=== PATIENT | female | born 1935 | race Caucasian/White ===

== ENCOUNTER → 2016-09-09 | Outpatient (CLI) | payer MEDICARE, BC, MEDICAID ==
[~2016-09-09] MED LIST: "\\\"PREP SPRAY\\\"-TIN4 OZ"; ABACAVIR300 MG; AMOXICILLIN500 M1 PO; ASPIR 8181 MG PO; BENADRYL50 MG; COLACE100 MG PO; DEMADEX20 MG; DURICEF (NON-500 MG; FEOSOL325 MG PO; FISH OIL1000 MG PO; FLONASE 50 MCG/16 GM; FUROSEMIDE80 MG PO; GLIPIZIDE XL10 MG PO; GLUCOPHAGE1000 MG PO; K-TAB 10MEQ10 MEQ; LANTUS100 UNIT/1 SUB-Q; LEVOTHYROXINE112 MCG PO; LEXAPRO20 MG PO; LIPITOR20 M1 PO; LOPERAMIDE2 MG PO; LOPRESSOR25 MG PO; LYRICA50 MG PO; MIRAPEX0.5 MG PO; MULTAQ400 MG PO; MYCOSTATIN(NYST15 GM; NIACIN PO; NITROGLYCERIN0.2 MG TOP; NITROSTAT0.4 MG SL; NORCO 5-325 MG1 TAB PO; NOVOLOG100 UNIT/M SUB-Q; OCUVITE SOFTGE1 EACH PO; OXYGEN INH; PRESERVISION A1 EACH; SPIRONOLACTONE25 MG PO; TYLENOL EXTRA500 MG PO; ULTRAM50 MG PO; VASOTEC2.5 MG PO; WARFARIN SODIU7.5 MG PO; WARFARIN SODIUM1 GM PO; ZYRTEC10 MG PO
[2016-09-09 08:23] LABS: INR - (THERAPEUTIC) 1.6 (0.9-1.1); PROTIME 17.2 SECONDS (9.6-11.1)
== END | disposition disaster alternative care site (69) ==
LOC: LHAL 09-08 13:35
PROVIDERS: Family Medicine
DX: I48.91 Unspecified atrial fibrillation (principal); Z79.01 Long term (current) use of anticoagulants

== ENCOUNTER → 2016-09-16 | Outpatient (CLI) | payer MEDICARE, BC, MEDICAID ==
[2016-09-16 08:56] LABS: INR - (THERAPEUTIC) 1.5 (0.9-1.1); PROTIME 16.1 SECONDS (9.6-11.1)
== END | disposition disaster alternative care site (69) ==
LOC: LHAL 04:43
PROVIDERS: Family Medicine
DX: I25.9 Chronic ischemic heart disease, unspecified (principal); I48.91 Unspecified atrial fibrillation; E11.65 Type 2 diabetes mellitus with hyperglycemia; N18.4 Chronic kidney disease, stage 4 (severe); E03.9 Hypothyroidism, unspecified

== ENCOUNTER → 2016-09-24 | Outpatient (CLI) | payer MEDICARE, BC, MEDICAID ==
[2016-09-24 08:37] LABS: INR - (THERAPEUTIC) 1.6 (0.9-1.1); PROTIME 17.4 SECONDS (9.6-11.1)
== END | disposition disaster alternative care site (69) ==
LOC: LHAL 09-23 08:34
PROVIDERS: Family Medicine
DX: I48.91 Unspecified atrial fibrillation (principal); Z79.01 Long term (current) use of anticoagulants

== ENCOUNTER → 2016-10-08 | Outpatient (CLI) | payer MEDICARE, BC, MEDICAID ==
[2016-10-08 07:53] LABS: INR - (THERAPEUTIC) 1.92 (0.92-1.07); PROTIME 20.3 SECONDS (9.8-11.4)
== END ==
LOC: LHAL 04:47
PROVIDERS: Family Medicine
DX: I48.91 Unspecified atrial fibrillation (principal); Z79.01 Long term (current) use of anticoagulants

== ENCOUNTER → 2016-10-22 | Outpatient (CLI) | payer MEDICARE, BC, MEDICAID ==
[2016-10-22 08:13] LABS: INR - (THERAPEUTIC) 1.89 (0.92-1.07)
== END ==
LOC: LHAL 10-21 04:42
PROVIDERS: Family Medicine
DX: I48.91 Unspecified atrial fibrillation (principal); Z79.01 Long term (current) use of anticoagulants

== ENCOUNTER → 2016-10-29 | Outpatient (CLI) | payer MEDICARE, BC, MEDICAID ==
[2016-10-29 08:17] LABS: BASOPHIL % 0.4 %; EOSINOPHIL # 0.3 K/uL (0.0-0.5); EOSINOPHIL % 4.6 %; HEMATOCRIT 37.8 % (30.0-46.0); HEMOGLOBIN 11.3 g/dL (10.0-15.0); IMMATURE GRANULOCYTE # 0.1 K/uL (0.0-0.3); IMMATURE GRANULOCYTE % 0.7 %; LYMPHOCYTE # 2.1 K/uL (0.8-4.0); MCH 28.3 pg (27.0-34.0); MCHC 29.9 gm/dL (32.0-36.5); MCV 94.7 fl (83.0-98.0); MONOCYTE # 0.7 K/uL (0.0-1.0); MONOCYTE % 10.1 %; MPV 9.4 fl (9.4-12.4); NEUTROPHIL # (ANC) 3.6 K/uL (1.8-7.8); NEUTROPHIL % 53.2 %; NRBC % 0 /100WBC (0-0.00); PLATELET COUNT 154 K/uL (150-450); RBC 3.99 M/uL (3.00-5.00); WBC 6.7 K/uL (4.0-11.0)
[2016-10-29 08:29] LABS: ALBUMIN 3.3 gm/dL (3.5-5.0); ANION GAP 13.5 (10.0-19.0); CALCIUM 8.4 mg/dL (8.5-10.5); CREATININE 1.3 mg/dL (0.5-1.1); POTASSIUM 4.5 mMol/L (3.7-5.1); TOTAL BILIRUBIN 0.3 mg/dL (0.0-1.5); TOTAL PROTEIN 6.9 g/dL (6.0-8.4)
== END | disposition disaster alternative care site (69) ==
LOC: LHAL 10-28 16:51
PROVIDERS: Family Medicine
DX: E11.65 Type 2 diabetes mellitus with hyperglycemia (principal); I25.9 Chronic ischemic heart disease, unspecified; N18.4 Chronic kidney disease, stage 4 (severe); E03.9 Hypothyroidism, unspecified

== ENCOUNTER → 2016-11-05 | Outpatient (CLI) | payer MEDICARE, BC, MEDICAID ==
[2016-11-05 07:50] LABS: INR - (THERAPEUTIC) 2.58 (0.92-1.07); PROTIME 27.4 SECONDS (9.8-11.4)
== END | disposition disaster alternative care site (69) ==
LOC: LHAL 11-03 14:58
PROVIDERS: Family Medicine
DX: I48.91 Unspecified atrial fibrillation (principal); Z79.01 Long term (current) use of anticoagulants

== ENCOUNTER → 2016-11-25 | Outpatient (CLI) | payer MEDICARE, BC, MEDICAID ==
[2016-11-25 11:41] LABS: BILIRUBIN URINE NEGATIVE (NEGATIVE); BLOOD URINE NEGATIVE /UL (NEGATIVE); COLOR URINE YELLOW (YELLOW); GLUCOSE URINE NEGATIVE (NEGATIVE); KETONE URINE NEGATIVE (NEGATIVE); LEUKOCYTES URINE 100 /UL (NEGATIVE); NITRITE URINE NEGATIVE (NEGATIVE); PROTEIN URINE NEGATIVE (NEGATIVE); SPEC GRAVITY URINE 1.015 (1.003-1.035); TURBIDITY URINE CLEAR (CLEAR); UROBILINOGEN URINE NORMAL (NORMAL)
[2016-11-25 11:52] LABS: RBC URINE NEGATIVE #/HPF (NEGATIVE)
[2016-11-25 11:53] LABS: BACTERIA URINE NEGATIVE (NEGATIVE)
== END | disposition disaster alternative care site (69) ==
LOC: LHAL 10:05
PROVIDERS: Family Medicine
DX: N39.0 Urinary tract infection, site not specified (principal)

== ENCOUNTER → 2016-12-03 | Outpatient (CLI) | payer MEDICARE, BC, MEDICAID ==
[2016-12-03 08:02] LABS: INR - (THERAPEUTIC) 2.35 (0.92-1.07); PROTIME 24.9 SECONDS (9.8-11.4)
== END | disposition disaster alternative care site (69) ==
LOC: LHAL 12-02 13:22
PROVIDERS: Family Medicine
DX: I48.91 Unspecified atrial fibrillation (principal); Z79.01 Long term (current) use of anticoagulants

== ENCOUNTER → 2016-12-31 | Outpatient (CLI) | payer MEDICARE, BC, MEDICAID ==
[2016-12-31 07:58] LABS: INR - (THERAPEUTIC) 2.69 (0.92-1.07); PROTIME 28.5 SECONDS (9.8-11.4)
== END | disposition disaster alternative care site (69) ==
LOC: LHAL 06:15
PROVIDERS: Family Medicine
DX: I48.91 Unspecified atrial fibrillation (principal); Z79.01 Long term (current) use of anticoagulants

== ENCOUNTER → 2017-01-28 | Outpatient (CLI) | payer MEDICARE, BC, MEDICAID ==
[2017-01-28 08:23] LABS: INR - (THERAPEUTIC) 3.86 (0.92-1.07); PROTIME 41.1 SECONDS (9.8-11.4)
== END ==
LOC: LHAL 01-27 16:24
PROVIDERS: Family Medicine
DX: I48.91 Unspecified atrial fibrillation (principal); Z79.01 Long term (current) use of anticoagulants

== ENCOUNTER → 2017-02-04 | Outpatient (CLI) | payer MEDICARE, BC, MEDICAID ==
[2017-02-04 08:43] LABS: INR - (THERAPEUTIC) 2.15 (0.92-1.07); PROTIME 22.7 SECONDS (9.8-11.4)
== END ==
LOC: LHAL 02-03 16:31
PROVIDERS: Family Medicine
DX: I48.91 Unspecified atrial fibrillation (principal); Z79.01 Long term (current) use of anticoagulants

== ENCOUNTER → 2017-03-04 | Outpatient (CLI) | payer MEDICARE, BC, MEDICAID ==
[2017-03-04 08:40] LABS: INR - (THERAPEUTIC) 2.02 (0.92-1.07); PROTIME 21.4 SECONDS (9.8-11.4)
== END ==
LOC: LHAL 03-03 13:40
PROVIDERS: Internal Medicine
DX: I48.91 Unspecified atrial fibrillation (principal); Z79.01 Long term (current) use of anticoagulants